=== PATIENT | female | born 1965 | race Caucasian/White ===

== ENCOUNTER 2023-03-14 13:26 | Emergency (ER) | payer BC ==
[~2023-03-14] VITALS: Ht 162.6 cm; Wt 63.0 kg
[~2023-03-14 13:26] MED LIST: ALPR-624 PO; CHOL2000 PO; FAMO40TA59 PO; LANS15CA14 PO; OMEG1CAP46 PO; ONDA4TAB12 PO; THY60T PO; VITA-268 PO
[2023-03-14 13:39] VITALS: BP 144/96; PULSE 66; RESP 16; TEMP 97.9; O2SAT 99
[2023-03-14] MEDS ORDERED: ONDA4TAB12 PO (15:05)
== END 2023-03-14 15:15 | disposition home or self-care (01) ==
LOC: ER 13:26
DX: R51.9 Headache, unspecified (principal); E78.00 Pure hypercholesterolemia, unspecified; K21.9 Gastro-esophageal reflux disease without esophagitis; F41.9 Anxiety disorder, unspecified; E03.9 Hypothyroidism, unspecified; Z79.899 Other long term (current) drug therapy
CPT/HCPCS: 70450; 99284